=== PATIENT | female | born 1945 | race Caucasian/White ===

== ENCOUNTER 2018-07-21 13:49 | Emergency (ER) | payer MEDICARE ==
[~2018-07-21] VITALS: Ht 167.6 cm; Wt 93.4 kg
[~2018-07-21 13:49] MED LIST: BONIVA; FOLIC ACID; MEDROL; METHOTREXATE; PROTONIX; REMICADE; Z.0.BONIVA150 MG; Z.0.CARAFATE1 GM; Z.0.FOLIC ACID1 MG; Z.1.METHOTREXATE2.5; Z.1.ZEGERID 40 MG1 E; [UNRECOGNIZED DRUG - OTHER]
--- OUTSIDE RECORDS SUMMARY | 2018-07-21 13:54 | XMS REPORT | Continuity of Care Document ---
Author Author [facility] [place] Address Unknown Phone Unavailable Problems Problem Status Onset Date Classification Date Reported Comments Source Osteopenia Active Problem 06/10/2018 Jan Merchant Rheumatoid arthritis of multiple sites without rheumatoid factor Active Problem 06/10/2018 Jan Merchant Idiopathic gout of multiple sites, unspecified chronicity Active Problem 06/10/2018 Jan Merchant Neck pain Active Problem 06/10/2018 Jan Merchant Encounter for long-term use of other high-risk medications Active Problem 06/10/2018 Jan Merchant Vitamin D deficiency Active Problem 06/10/2018 Jan Merchant Other fracture of right great toe, sequela Active Diagnosis 03/18/2017 Jan Merchant Pain of left foot Active Diagnosis 11/19/2016 Jan Merchant Pain in right foot Active Diagnosis 11/19/2016 Jan Merchant Long-term use of other medications - High Risk Active Problem 07/01/2016 Jan Merchant Psoriasis Active Problem 07/01/2016 Jan Merchant Rheumatoid arthritis Active Problem 07/01/2016 Jan Merchant Osteoporosis Active Diagnosis 06/10/2018 Jan Merchant Encounter for immunization Active Diagnosis 05/06/2016 Jan Merchant Medications Medication Details Route Status Patient Instructions Ordering Provider Order Date Source Methotrexate 6 tablets Orally Active 2.5mg Orally Once a week Merchant 03/20/2018 Jan Merchant MethylPREDNISolone 1 tablet Orally Active 4MG Orally Once a day Merchant 03/20/2018 Jan Merchant Folic Acid 2 tablets Orally Active 1 MG Orally q am Merchant 02/09/2018 Jan Merchant Vitamin D (Ergocalciferol) 1 capsule Orally Active 09091 UNIT Orally once a week Merchant 01/20/2018 Jan Merchant Vitamin D (Ergocalciferol) 1 capsule Orally Active 46761 UNIT Orally once a week Merchant 09/22/2017 Jan Merchant Methotrexate 6 tablets Orally Active 2.5mg Orally Once a week Merchant 05/16/2017 Jan Merchant MethylPREDNISolone 1/2 tablet Orally Active 4MG Orally once a day Merchant 05/16/2017 Jan Merchant Hydroxychloroquine Sulfate 1 tablet with food or milk Orally Active 200 MG Orally bid Merchant 12/16/2016 Jan Merchant Hydroxychloroquine Sulfate 1 tablet with food or milk Orally Active 200 MG Orally bid Merchant 12/16/2016 Jan Merchant Prednisone Taper 3 tablets for 5 days, 2 tablets for 5 days and then 1 tablet for 5 days orally Active 5mg orally as directed Bravo 11/17/2016 Jan Merchant MethylPREDNISolone 1/2 tablet Orally Active 4 MG Orally Once a day Bravo 04/22/2016 Jan Merchant Vitamin D (Ergocalciferol) take one capsule by mouth once a week Orally Active 13615 UNIT Orally Qwk Bravo 01/21/2016 Jan Merchant MethylPREDNISolone 1/2 tablet Orally Active 4 MG Orally Once a day Bravo 01/21/2016 Jan Merchant Methotrexate 6 pills Orally Active 2.5mg Orally Once a week Bravo 01/21/2016 Jan Merchant Cyclobenzaprine HCl 1 tablet Orally Active 10 MG Orally BID Bravo 07/25/2015 Jan Merchant Protonix 1 tablet Orally Active 40 MG Orally QD Bravo 08/03/2014 Jan Merchant Methotrexate 6 pills Orally Active 2.5mg Orally Qwk Bravo 08/03/2014 Jan Merchant Motrin IB 1 tablet Orally Active 200 MG Orally prn Bravo 08/03/1998 Jan Merchant Aspirin 1 tablet Orally Active 81 MG Orally QD Bravo 08/03/1994 Jan Merchant Protonix 1 tablet Orally Active 40 MG Orally once a day [place] Jan Merchant Motrin IB 1 tablet Orally Active 200 MG Orally as needed [place] Jan Merchant Aspirin 1 tablet Orally Active 81 MG Orally once a day [place] Jan Merchant Fosamax 1 tablet Orally Active 70 MG Orally once a week [place] Jan Merchant Triamterene-HCTZ 1 tablet in the morning Orally Active 37.5-25 MG Orally Once a day [place] Jan Merchant Protonix 1 tablet Orally Active 40 MG Orally once a day [place] Jan Merchant Aspirin 1 tablet Orally Active 81 MG Orally once a day [place] Jan Merchant Methotrexate 6 tablets Orally Active 2.5mg Orally Once a week [place] Jan Merchant Allopurinol 1 1/2 tablet Orally Active 300 MG Orally Once a day [place] Jan Merchant Fosamax 1 tablet Orally Active 70 MG Orally once a week Merchant Jan Merchant Motrin IB 1 tablet Orally Active 200 MG Orally as needed Merchant Jan Merchant MethylPREDNISolone 1/2 tablet Orally Active 4MG Orally once a day Merchant Jna Merchant MethylPREDNISolone 1 tablet Orally Active 4MG Orally Once a day Shonda Merchant Vitamin D (Ergocalciferol) TAKE ONE CAPSULE BY MOUTH ONCE A WEEK NA Active 21210 UNIT [place] Jan Merchant Methotrexate TAKE 6 TABLETS BY MOUTH ONCE A WEEK NA Active 2.5 MG Merchant Jan Merchant Folic Acid TAKE 1 TABLET BY MOUTH EVERY DAY NA Active 1 MG QD Bravoedilma Merchant Methotrexate 6 tablets Orally Active 2.5mg Orally Once a week Merchant Jan Merchant MethylPREDNISolone 1/2 tablet Orally Active 4 MG Orally Once a day [place] Jan Merchant MethylPREDNISolone TAKE ONE-HALF TABLET BY MOUTH ONCE DAILY NA Active 4MG Shonda Merchant Allergies, Adverse Reactions, Alerts Substance Category Reaction Severity Reaction type Status Date Reported Comments Source Remicade Adverse Reaction Insurance Adverse Reaction Active 02/09/2018 Jan Merchant Percodan Adverse Reaction Info Not Available Adverse Reaction Active 02/09/2018 Jan Merchant Droperidol Adverse Reaction Info Not Available Adverse Reaction Active 02/09/2018 Jan Merchant codeine Adverse Reaction Info Not Available Adverse Reaction Active 02/09/2018 Jan Merchant Immunizations Immunization Date Given Site Status Last Updated Comments Source Flu Vaccine 04/23/2016 completed Jan Merchant Results Order Name Results Value Reference Range Date Interpretation Comments Source Vital Signs Vital Sign Value Date Comments Source Weight 189 02/09/2018 Jan Merchant Height 64 02/09/2018 Jan Merchant Temperature Oral (F) 98.0 F 02/09/2018 Jan Merchant Heart Rate 68 02/09/2018 Jan Merchant Diastolic (mm Hg) 72 02/09/2018 Jan Merchant Systolic (mm Hg) 128 02/09/2018 Jan Alonsoer Weight 188 09/21/2017 Jan Alonsoer Height 64 09/21/2017 Jan Merchant Temperature Oral (F) 98.3 F 09/21/2017 Jan Merchant Heart Rate 70 09/21/2017 Jan Merchant Diastolic (mm Hg) 68 09/21/2017 Jan Merchant Systolic (mm Hg) 150 09/21/2017 Jan Merchant Weight 186 03/16/2017 Jan Merchant Height 64 03/16/2017 Jan Merchant Temperature Oral (F) 98.2 F 03/16/2017 Jan Merchant Heart Rate 84 03/16/2017 Jan Merchant Diastolic (mm Hg) 78 03/16/2017 Jan Merchant Systolic (mm Hg) 110 03/16/2017 Jan Merchant Weight 186 12/16/2016 Jan Merchant Height 64 12/16/2016 Jan Merchant Temperature Oral (F) 98.7 F 12/16/2016 Jan Merchant Heart Rate 60 12/16/2016 Jan Merchant Diastolic (mm Hg) 82 12/16/2016 Jan Merchant Systolic (mm Hg) 130 12/16/2016 Jan Merchant Weight 182 11/17/2016 Jan Merchant Height 64 11/17/2016 Jan Merchant Temperature Oral (F) 98.4 F 11/17/2016 Jan Merchant Heart Rate 88 11/17/2016 Jan Merchant Diastolic (mm Hg) 78 11/17/2016 Jan Merchant Systolic (mm Hg) 132 11/17/2016 Jan Merchant Weight 185 08/19/2016 Jan Merchant Height 64 08/19/2016 Jan Merchant Temperature Oral (F) 97.2 F 08/19/2016 Jan Merchant Heart Rate 74 08/19/2016 Jan Merchant Diastolic (mm Hg) 76 08/19/2016 Jan Merchant Systolic (mm Hg) 128 08/19/2016 Jan Merchant Weight 184 04/23/2016 Jan Merchant Height 64 04/23/2016 Jan Merchant Temperature Oral (F) 98.8 F 04/23/2016 Jan Merchant Heart Rate 76 04/23/2016 Jan Merchant Diastolic (mm Hg) 72 04/23/2016 Jan Merchant Systolic (mm Hg) 124 04/23/2016 Jan Merchant Weight 180 01/23/2016 Jan Merchant Height 64 01/23/2016 Jan Merchant Temperature Oral (F) 98.3 F 01/23/2016 Jan Merchant Heart Rate 72 01/23/2016 Jan Merchant Diastolic (mm Hg) 80 01/23/2016 Jan Merchant Systolic (mm Hg) 130 01/23/2016 Jan Merchant Weight 183 10/25/2015 Jan Merchant Height 64 10/25/2015 Jan Merchant Temperature Oral (F) 98.1 F 10/25/2015 Jan Merchant Heart Rate 64 10/25/2015 Jan Merchant Diastolic (mm Hg) 80 10/25/2015 Jan Alonsoer Systolic (mm Hg) 120 10/25/2015 Jan Merchant Weight 183 07/25/2015 Jan Merchant Height 65 07/25/2015 Jan Merchant Temperature Oral (F) 97.5 F 07/25/2015 Jan Merchant Heart Rate 76 07/25/2015 Jan Merchant Diastolic (mm Hg) 74 07/25/2015 Jan Merchant Encounters Location Location Details Encounter Type Encounter Number Reason For Visit Attending Provider ADM Date DC Date Status Source Gerard Merchant MD f/u [id number] 11/29/2013 11/29/2013 Jan Merchant MD f/u [id number] 11/29/2013 11/29/2013 Jan Merchant MD f/u [id number] 11/29/2013 11/29/2013 Jan Merchant MD f/u [id number] 11/29/2013 11/29/2013 Jan Merchant MD f/u [id number] 11/29/2013 11/29/2013 Jan Merchant MD f/u [id number] 11/29/2013 11/29/2013 Jan Merchant MD f/u [id number] 11/29/2013 11/29/2013 Jan Merchant MD f/u [id number] 2014 2014 Jan Merchant MD f/u [id number] 2014 2014 Jan Mecrhant MD f/u [id number] 2014 2014 Jan Merchant MD f/u [id number] 2014 2014 Jan Merchant MD f/u [id number] 2014 2014 Jan Merchant MD f/u [id number] 2014 2014 Jan Merchant MD f/u [id number] 2014 2014 Jan Merchant MD [facility] [id number] 02/10/2014 02/10/2014 Jan Merchant MD [facility] [id number] 02/10/2014 02/10/2014 Jan Merchant MD [facility] [id number] 02/10/2014 02/10/2014 Jan Merchant MD [facility] [id number] 02/10/2014 02/10/2014 Jan Merchant MD [facility] [id number] 02/10/2014 02/10/2014 Jan Merchant MD [facility] [id number] 02/10/2014 02/10/2014 Jan Merchant MD [facility] [id number] 02/10/2014 02/10/2014 Jan Merchant MD DOUBLE APPOINTMENTS [id number] 03/20/2014 03/20/2014 Jan Merchant MD DOUBLE APPOINTMENTS [id number] 03/20/2014 03/20/2014 Jan Merchant MD DOUBLE APPOINTMENTS [id number] 03/20/2014 03/20/2014 Jan Merchant MD DOUBLE APPOINTMENTS [id number] 03/20/2014 03/20/2014 Jan Merchant MD DOUBLE APPOINTMENTS [id number] 03/20/2014 03/20/2014 Jan Merchant MD DOUBLE APPOINTMENTS [id number] 03/20/2014 03/20/2014 Jan Merchant MD DOUBLE APPOINTMENTS [id number] 03/20/2014 03/20/2014 Jan Merchant MD Unknown [id number] 04/07/2014 04/07/2014 Jan Merchant MD Unknown [id number] 04/07/2014 04/07/2014 Jan Merchant MD Unknown [id number] 04/07/2014 04/07/2014 Jan Merchant MD Unknown [id number] 04/07/2014 04/07/2014 Jan Merchant MD Unknown [id number] 04/07/2014 04/07/2014 Jan Merchant MD Unknown [id number] 04/07/2014 04/07/2014 Jan Merchant MD Unknown [id number] 04/07/2014 04/07/2014 Jan Merchant MD MRI [id number] 05/11/2014 05/11/2014 Jan Merchant MD MRI [id number] 05/11/2014 05/11/2014 Jan Merchant MD MRI [id number] 05/11/2014 05/11/2014 Jan Merchant MD MRI [id number] 05/11/2014 05/11/2014 Jan Merchant MD MRI [id number] 05/11/2014 05/11/2014 Jan Merchant MD MRI [id number] 05/11/2014 05/11/2014 Jan Merchant MD MRI [id number] 05/11/2014 05/11/2014 Jan Merchant MD INSURANCE QUESTIONS [id number] 05/26/2014 05/26/2014 Jan Merchant MD INSURANCE QUESTIONS [id number] 05/26/2014 05/26/2014 Jan Merchant MD INSURANCE QUESTIONS [id number] 05/26/2014 05/26/2014 Jan Merchant MD INSURANCE QUESTIONS [id number] 05/26/2014 05/26/2014 Jan Merchant MD INSURANCE QUESTIONS [id number] 05/26/2014 05/26/2014 Jan Merchant MD INSURANCE QUESTIONS [id number] 05/26/2014 05/26/2014 Jan Merchant MD INSURANCE QUESTIONS [id number] 05/26/2014 05/26/2014 Jan Merchant MD Unknown [id number] 06/12/2014 06/12/2014 Jan Merchant MD Unknown [id number] 06/12/2014 06/12/2014 Jan Merchant MD Unknown [id number] 06/12/2014 06/12/2014 Jan Merchant MD Unknown [id number] 06/12/2014 06/12/2014 Jan Merchant MD Unknown [id number] 06/12/2014 06/12/2014 Jan Merchant MD Unknown [id number] 06/12/2014 06/12/2014 Jan Merchant MD Unknown [id number] 06/12/2014 06/12/2014 Jan Merchant MD Discuss meds [id number] 08/29/2014 08/29/2014 Jan Merchant MD Discuss meds [id number] 08/29/2014 08/29/2014 Jan Merchant MD Discuss meds [id number] 08/29/2014 08/29/2014 Jan Merchant MD Discuss meds [id number] 08/29/2014 08/29/2014 Jan Merchant MD Discuss meds [id number] 08/29/2014 08/29/2014 Jan Merchant MD Discuss meds [id number] 08/29/2014 08/29/2014 Jan Merchant MD Discuss meds [id number] 08/29/2014 08/29/2014 Jan Merchant MD study - 35Bsa91 [id number] 09/04/2014 09/04/2014 Jan Merchant MD study - 05Ngm05 [id number] 09/04/2014 09/04/2014 Jan Merchant MD study - 94Wqk66 [id number] 09/04/2014 09/04/2014 Jan Merchant MD study - 65Hop52 [id number] 09/04/2014 09/04/2014 Jan Merchant MD study - 33Wzz55 [id number] 09/04/2014 09/04/2014 Jan Merchant MD study - 23Ieb74 [id number] 09/04/2014 09/04/2014 Jan Merchant MD study - 33Pib96 [id number] 09/04/2014 09/04/2014 Jan Merchant MD f/u [id number] 10/02/2014 10/02/2014 Jan Merchant MD f/u [id number] 10/02/2014 10/02/2014 Jan Merchant MD / [id number] 10/02/2014 10/02/2014 Jan Merchant MD / [id number] 10/02/2014 10/02/2014 Jan Merchant MD / [id number] 10/02/2014 10/02/2014 Jan Merchant MD / [id number] 10/02/2014 10/02/2014 Jan Merchant MD [facility] [id number] 10/02/2014 10/02/2014 Jan Merchant MD [facility]. [id number] 01/23/2015 01/23/2015 Jan Merchant MD [facility]. [id number] 01/23/2015 01/23/2015 Jan Merchant MD [facility]. [id number] 01/23/2015 01/23/2015 Jan Merchant MD [facility].u [id number] 01/23/2015 01/23/2015 Jan Merchant MD [facility].u [id number] 01/23/2015 01/23/2015 Jan Merchant MD [facility] [id number] 01/23/2015 01/23/2015 Jan Merchant MD [facility] [id number] 01/23/2015 01/23/2015 Jan Merchant MD MRI [id number] 02/08/2015 02/08/2015 Jan Merchant MD MRI [id number] 02/08/2015 02/08/2015 Jan Merchant MD MRI [id number] 02/08/2015 02/08/2015 Jan Merchant MD MRI [id number] 02/08/2015 02/08/2015 Jan Merchant MD MRI [id number] 02/08/2015 02/08/2015 Jan Merchant MD MRI [id number] 02/08/2015 02/08/2015 Jan Merchant MD MRI [id number] 02/08/2015 02/08/2015 Jan Merchant MD 1133 xelheladioz vs humira [id number] 04/25/2015 04/25/2015 Jna Merchant MD 1133 xelheladioz vs humira [id number] 04/25/2015 04/25/2015 Jan Merchant MD 1133 xeljanz vs humira [id number] 04/25/2015 04/25/2015 Jan Merchant MD 1133 xeljanz vs humira [id number] 04/25/2015 04/25/2015 Jan Merchant MD 1133 xeljanz vs humira [id number] 04/25/2015 04/25/2015 Jan Merchant MD 1133 xeljanz vs humira [id number] 04/25/2015 04/25/2015 Jan Merchant MD 1133 xeljanz vs humira [id number] 04/25/2015 04/25/2015 Jan Merchant MD f.u [id number] 04/25/2015 04/25/2015 Jan Merchant MD f.u [id number] 04/25/2015 04/25/2015 Jan Merchant MD f.u [id number] 04/25/2015 04/25/2015 Jan Merchant MD f.u [id number] 04/25/2015 04/25/2015 Jan Merchant MD f.u [id number] 04/25/2015 04/25/2015 Jan Merchant MD [facility] [id number] 04/25/2015 04/25/2015 Jan Merchant MD [facility] [id number] 04/25/2015 04/25/2015 Jan Merchant MD x ray order/mri [id number] 05/24/2015 05/24/2015 Jan Merchant MD x ray order/mri [id number] 05/24/2015 05/24/2015 Jan Merchant MD x ray order/mri [id number] 05/24/2015 05/24/2015 Jan Merchant MD x ray order/mri [id number] 05/24/2015 05/24/2015 Jan Merchant MD x ray order/mri [id number] 05/24/2015 05/24/2015 Jan Merchant MD x ray order/mri [id number] 05/24/2015 05/24/2015 Jan Merchant MD x ray order/mri [id number] 05/24/2015 05/24/2015 Jan Merchant MD [facility] [id number] 07/25/2015 07/25/2015 Jan Merchant MD [facility]u [id number] 07/25/2015 07/25/2015 Jan Merchant MD [facility]u [id number] 07/25/2015 07/25/2015 Jan Merchant MD [facility]u [id number] 07/25/2015 07/25/2015 Jan Merchant MD [facility]u [id number] 07/25/2015 07/25/2015 Jan Merchant MD [facility]u [id number] 07/25/2015 07/25/2015 Jan Merchant MD [facility]u [id number] 07/25/2015 07/25/2015 Jan Merchant MD [facility]u [id number] 10/25/2015 10/25/2015 Jan Merchant MD [facility]u [id number] 10/25/2015 10/25/2015 Jan Merchant MD [facility]u [id number] 10/25/2015 10/25/2015 Jan Merchant MD [facility]u [id number] 10/25/2015 10/25/2015 Jan Merchant MD [facility]u [id number] 10/25/2015 10/25/2015 Jan Merchant MD [facility]u [id number] 10/25/2015 10/25/2015 Jan Merchant MD [facility]u [id number] 01/23/2016 01/23/2016 Jan Merchant MD [facility]u [id number] 01/23/2016 01/23/2016 Jan Merchant MD [facility]u [id number] 01/23/2016 01/23/2016 Jan Merchant MD [facility]u [id number] 01/23/2016 01/23/2016 Jan Merchant MD [facility]u [id number] 01/23/2016 01/23/2016 Jan Merchant MD [facility]u [id number] 04/23/2016 04/23/2016 Jan Merchant MD [facility]u [id number] 04/23/2016 04/23/2016 Jan Merchant MD [facility]u [id number] 04/23/2016 04/23/2016 Jan Merchant MD [facility]u [id number] 04/23/2016 04/23/2016 Jan Merchant MD VERIFY INSURANCE [id number] 06/30/2016 06/30/2016 Jan Merchant MD VERIFY INSURANCE [id number] 06/30/2016 06/30/2016 Jan Merchant MD [employer] [id number] 06/30/2016 06/30/2016 Jan Merchant MD 4 month follow up [id number] 08/19/2016 08/19/2016 Jan Merchant MD lab order [id number] 08/26/2016 08/26/2016 Jan Merchant MD lab order [id number] 08/26/2016 08/26/2016 Jan Merchant Procedures Procedure Code Date Perfomer Comments Source
--- OUTSIDE RECORDS SUMMARY | 2018-07-21 13:55 | XMS REPORT ---
Author Author Sweta Bravo [facility] eClinicalWorks Address Unknown Phone Unavailable Care Team Providers Care Music Educator Name Role Phone Sweta Bravo Unavailable Allergies, Adverse Reactions, Alerts Substance Reaction Event Type Remicade Insurance Drug Allergy Percodan Info Not Available Drug Allergy Droperidol Info Not Available Drug Allergy codeine Info Not Available Non Drug Allergy Encounters Encounter Location Date MRI Gerard Merchant MD May 11, 2014 MRI Bi[facility] - [facility] Gerard Merchant MD February 10, 2014 INSURANCE QUESTIONS Gerard Merchant MD May 26, 2014 Unknown Gerard Merchant MD Jun 12, 2014 f/u Gerard Merchant MD November 29, 2013 f/u Gerard Merchant MD 2014 DOUBLE APPOINTMENTS Gerard Merchant MD Mar 20, 2014 RA study - [id number] Gerard Merchant MD Sep 04, 2014 Discuss meds Gerard Merchant MD Aug 29, 2014 f/bhumi Merchant MD October 02, 2014 3m sally Merchant MD Jul 25, 2015 3m sally Merchant MD October 25, 2015 x ray order/mri Gerard Merchant MD May 24, 2015 Unknown Gerard Merchant MD Apr 07, 2014 1133 xeljanz vs guillerminaira Gerard Merchant MD Apr 25, 2015 3m sally Merchant MD Apr 25, 2015 3m sally Merchant MD January 23, 2015 MRI Gerard Merchant MD February 08, 2015 Problems Problem Type Condition ICD-9 Code Onset Dates Condition Status Assessment Encounter for long-term (current) use of other high-risk medications Z79.899 Active Problem Encounter for long-term (current) use of other high-risk medications Z79.899 Active Problem Neck pain M54.2 Active Problem Rheumatoid arthritis of multiple sites without rheumatoid factor M06.09 Active Problem Long-term (current) use of other medications - High Risk V58.69 Active Assessment Rheumatoid arthritis of multiple sites without rheumatoid factor M06.09 Active Problem Psoriasis 696.1 Active Problem Rheumatoid arthritis 714.0 Active Medications Medication Code System Code Instructions Start Date End Date Status Dosage Motrin IB [facility] [address]-11 200 MG Orally prn Aug 03, 1998 Active 1 tablet Aspirin [facility] [address]-12 81 MG Orally QD Aug 03, 1994 Active 1 tablet Folic Acid [facility] 92697623182 1 MG QD Active TAKE 1 TABLET BY MOUTH EVERY DAY Protonix [facility] [address]-79 40 MG Orally QD Aug 03, 2014 Active 1 tablet MethylPREDNISolone [facility] [address]-98 4 MG Orally Once a day Apr 22, 2016 Active 1/2 tablet Methotrexate Unknown 0 2.5mg Orally Qwk Aug 03, 2014 January 21, 2016 Active 6 pills Vitamin D (Ergocalciferol) [facility] [address]-64 29044 UNIT Orally Qwk January 21, 2016 Active take one capsule by mouth once a week Social History Social History Element Qualifiers Date Reported Illicit Drugs . none October 25, 2015 Diet: no. October 25, 2015 Tobacco Use: . Are you a:: never smoker October 25, 2015 Marital Status: . October 25, 2015 Caffeine: yes. 1-2 October 25, 2015 Exercise: no. October 25, 2015 Alcohol: no. 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 RWANDAN(-> OR=60 mL/min/1.73m2) 65 ALKALINE PHOSPHATASE(-33-130 U/L) 38 eGFR (-> OR=60 mL/min/1.73m2) 75 BILIRUBIN, TOTAL(-0.2-1.2 mg/dL) 0.3 BUN/CREATININE RATIO(-6-22 (calc)) NOT APPLICABLE ALBUMIN/GLOBULIN RATIO(-1.0-2.5 (calc)) 1.8 SODIUM(-135-146 mmol/L) 137 GLOBULIN(-1.9-3.7 g/dL (calc)) 2.4 POTASSIUM(-3.5-5.3 mmol/L) 3.8 GLUCOSE(-65-99 mg/dL) 106 CHLORIDE(-98-110 mmol/L) 99 ALBUMIN(-3.6-5.1 g/dL) 4.2 UREA NITROGEN (BUN)(-7-25 mg/dL) 16 PROTEIN, TOTAL(-6.1-8.1 g/dL) 6.6 SED RATE BY MODIFIED WESTERGREN SED RATE BY MODIFIED WESTERGREN(-< OR=30 mm/h) 11 C-REACTIVE PROTEIN C-REACTIVE PROTEIN(-<0.80 mg/dL) 0.24 CBC (INCLUDES DIFF/PLT) MCHC(-32.0-36.0 g/dL) 33.0 MCH(-27.0-33.0 pg) 30.1 PLATELET COUNT(-140-400 Thousand/uL) 245 RDW(-11.0-15.0 %) 16.3 BASOPHILS(- %) 0.2 ABSOLUTE NEUTROPHILS(-2548-7748 cells/uL) 6665 ABSOLUTE LYMPHOCYTES(-850-3900 cells/uL) 2030 MPV(-7.5-11.5 fL) 9.3 ABSOLUTE BASOPHILS(-0-200 cells/uL) 19 HEMATOCRIT(-35.0-45.0 %) 39.2 NEUTROPHILS(- %) 70.9 MCV(-80.0-100.0 fL) 91.1 RED BLOOD CELL COUNT(-3.80-5.10 Million/uL) 4.30 ABSOLUTE MONOCYTES(-200-950 cells/uL) 555 ABSOLUTE EOSINOPHILS(-15-500 cells/uL) 132 HEMOGLOBIN(-11.7-15.5 g/dL) 12.9 EOSINOPHILS(- %) 1.4 WHITE BLOOD CELL COUNT(-3.8-10.8 Thousand/uL) 9.4 LYMPHOCYTES(- %) 21.6 MONOCYTES(- %) 5.9 Summary Purpose eClinicalWorks Submission
--- OUTSIDE RECORDS SUMMARY | 2018-07-21 13:55 | XMS REPORT ---
Author Gerard Coe eClinicalWorks Address Unknown Phone Unavailable Care Team Providers Care Electronic Drafter Name Role Phone Gerard Merchant CP Unavailable Encounters Encounter Location Date MRI Gerard Merchant MD May 11, 2014 MRI [facility] - [facility] Gerard Merchant MD February 10, 2014 INSURANCE QUESTIONS Gerard Merchant MD May 26, 2014 Unknown Gerard Merchant MD Jun 12, 2014 f/u Gerard Merchant MD November 29, 2013 f/u Gerard Merchant MD 2014 DOUBLE APPOINTMENTS Gerard Merchant MD Mar 20, 2014 RA study - [id number] Gerard Merchant MD Sep 04, 2014 VERIFY INSURANCE Gerard Merchant MD Jun 30, 2016 3m sally Merchant MD Apr 23, 2016 Discuss meds Gerard Merchant MD Aug 29, 2014 f/u Gerard Merchant MD October 02, 2014 chris Merchant MD Jul 25, 2015 3m sally Merchant MD October 25, 2015 x ray order/mri Gerard Merchant MD May 24, 2015 Unknown Gerard Merchant MD Apr 07, 2014 1133 xeljanz vs guillerminaira Gerard Merchant MD Apr 25, 2015 chris Merchant MD Apr 25, 2015 3m sally Merchant MD January 23, 2015 MRI Gerard Merchant MD February 08, 2015 chris Merchant MD January 23, 2016 Problems Problem Type Condition ICD-9 Code Onset Dates Condition Status Problem Encounter for long-term (current) use of other high-risk medications Z79.899 Active Problem Neck pain M54.2 Active Problem Rheumatoid arthritis of multiple sites without rheumatoid factor M06.09 Active Problem Long-term (current) use of other medications - High Risk V58.69 Active Problem Psoriasis 696.1 Active Problem Rheumatoid arthritis 714.0 Active Social History Social History Element Qualifiers Date Reported Illicit Drugs . none Apr 23, 2016 Diet: no. Apr 23, 2016 Tobacco Use: . Are you a:: never smoker Apr 23, 2016 Marital Status: . Apr 23, 2016 Caffeine: yes. 1-2 Apr 23, 2016 Exercise: no. Apr 23, 2016 Alcohol: no. 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
--- OUTSIDE RECORDS SUMMARY | 2018-07-21 13:55 | XMS REPORT ---
Author Gerard Coe [facility] eClinicalWorks Address Unknown Phone Unavailable Care Team Providers Care Beading Machine Operator Name Role Phone Gerard Merchant CP Unavailable Allergies, Adverse Reactions, Alerts Substance Reaction Event Type Remicade Insurance Drug Allergy Percodan Info Not Available Drug Allergy Droperidol Info Not Available Drug Allergy codeine Info Not Available Non Drug Allergy Problems Problem Type Condition Code Onset Dates Condition Status Assessment Encounter for long-term (current) use of other high-risk medications Z79.899 Active Assessment Osteopenia M85.80 Active Assessment Idiopathic gout of multiple sites, unspecified chronicity M10.09 Active Assessment Vitamin D deficiency E55.9 Active Problem Idiopathic gout of multiple sites, unspecified chronicity M10.09 Active Problem Osteopenia M85.80 Active Problem Vitamin D deficiency E55.9 Active Problem Encounter for long-term (current) use of other high-risk medications Z79.899 Active Assessment Rheumatoid arthritis of multiple sites without rheumatoid factor M06.09 Active Problem Rheumatoid arthritis of multiple sites without rheumatoid factor M06.09 Active Problem Neck pain M54.2 Active Medications Medication Code System Code Instructions Start Date End Date Status Dosage Protonix [facility] 72785795729 40 MG Orally once a day Active 1 tablet Aspirin ND 03209702402 81 MG Orally once a day Active 1 tablet Triamterene-HCTZ [facility] 60667437718 37.5-25 MG Orally Once a day Active 1 tablet in the morning Vitamin D (Ergocalciferol) ND 09248966251 40877 UNIT Orally once a week January 20, 2018 Active 1 capsule Motrin IB [facility] 23346982784 200 MG Orally as needed Active 1 tablet MethylPREDNISolone ND 67879796789 4MG Orally Once a day Active 1 tablet Fosamax ND 73794786115 70 MG Orally once a week Active 1 tablet Methotrexate NDC 0 2.5mg Orally Once a week Active 6 tablets Folic Acid ND 86214638180 1 MG Orally q am February 09, 2018 Aug 08, 2018 Active 2 tablets Vital Signs Date/Time: February 09, 2018 BMI 32.44 Index Weight 189 lbs Height 64 in Temperature 98.0 F Cardiac Monitoring Heart Rate 68 /min Blood Pressure Diastolic 72 mm Hg Blood Pressure Systolic 128 mm Hg Results No Known Results Summary Purpose eClinicalWorks Submission
--- OUTSIDE RECORDS SUMMARY | 2018-07-21 13:55 | XMS REPORT ---
Author Gerard Coe Organization eClinicalWorks Address Unknown Phone Unavailable Care Team Providers Care Applications Support Lead Name Role Phone Gerard Merchant CP Unavailable Allergies No Known Allergies Problems Problem Type Condition Code Onset Dates Condition Status Problem Idiopathic gout of multiple sites, unspecified chronicity M10.09 Active Problem Osteopenia M85.80 Active Problem Vitamin D deficiency E55.9 Active Problem Encounter for long-term (current) use of other high-risk medications Z79.899 Active Problem Rheumatoid arthritis of multiple sites without rheumatoid factor M06.09 Active Problem Neck pain M54.2 Active Medications No Known Medications Results No Known Results Summary Purpose eClinicalWorks Submission
--- OUTSIDE RECORDS SUMMARY | 2018-07-21 13:55 | XMS REPORT ---
Author Gerard Coe [facility] eClinicalWorks Address Unknown Phone Unavailable Care Team Providers Care Rollway Man Name Role Phone Gerard Merchant CP Unavailable Allergies, Adverse Reactions, Alerts Substance Reaction Event Type Remicade Insurance Drug Allergy Percodan Info Not Available Drug Allergy Droperidol Info Not Available Drug Allergy codeine Info Not Available Non Drug Allergy Problems Problem Type Condition Code Onset Dates Condition Status Assessment Idiopathic gout of multiple sites, unspecified chronicity M10.09 Active Assessment Encounter for long-term (current) use of other high-risk medications Z79.899 Active Problem Osteopenia M85.80 Active Problem Rheumatoid arthritis of multiple sites without rheumatoid factor M06.09 Active Problem Idiopathic gout of multiple sites, unspecified chronicity M10.09 Active Assessment Rheumatoid arthritis of multiple sites without rheumatoid factor M06.09 Active Assessment Osteopenia M85.80 Active Problem Encounter for long-term (current) use of other high-risk medications Z79.899 Active Problem Neck pain M54.2 Active Medications Medication Code System Code Instructions Start Date End Date Status Dosage Methotrexate NDC 0 2.5mg Orally Once a week May 16, 2017 Active [address] [facility] [address]-38 40 MG Orally once a day Active 1 tablet Hydroxychloroquine Sulfate [facility] [address]-35 200 MG Orally bid December 16, 2016 Jun 14, 2017 Active 1 tablet with food or milk Aspirin [facility] [address]-28 81 MG Orally once a day Active [address] [facility] [address]-42 300 MG Orally Once a day Active 1 [address] [facility] [address]-85 4MG Orally once a day May 16, 2017 Active 1/[address] [facility] [address]-67 70 MG Orally once a week Active 1 tablet Motrin IB [facility] [address]-47 200 MG Orally as needed Active 1 tablet Vital Signs Date/Time: December 16, 2016 BMI 31.92 Index Weight 186 lbs Height 64 in Temperature 98.7 F Cardiac Monitoring Heart Rate 60 /min Blood Pressure Diastolic 82 mm Hg Blood Pressure Systolic 130 mm Hg Results No Known Results Summary Purpose eClinicalWorks Submission
--- OUTSIDE RECORDS SUMMARY | 2018-07-21 13:55 | XMS REPORT ---
Author Gerard Coe Organization eClinicalWorks Address Unknown Phone Unavailable Care Team Providers Care Cartridge Assembler Name Role Phone Gerard Merchant CP Unavailable Allergies No Known Allergies Problems Problem Type Condition Code Onset Dates Condition Status Problem Rheumatoid arthritis of multiple sites without rheumatoid factor M06.09 Active Problem Encounter for long-term (current) use of other high-risk medications Z79.899 Active Problem Osteopenia M85.80 Active Problem Neck pain M54.2 Active Medications No Known Medications Results No Known Results Summary Purpose eClinicalWorks Submission
--- OUTSIDE RECORDS SUMMARY | 2018-07-21 13:55 | XMS REPORT ---
Author Gerard Coe Organization eClinicalWorks Address Unknown Phone Unavailable Care Team Providers Care Motor Carrier Inspector Name Role Phone Gerard Merchant CP Unavailable [...]
--- OUTSIDE RECORDS SUMMARY | 2018-07-21 13:55 | XMS REPORT ---
Author Gerard Coe [facility] eClinicalWorks Address Unknown Phone Unavailable Care Team Providers Care Manufacturer'S Service Representative Name Role Phone Gerard Merchant CP Unavailable Allergies, Adverse Reactions, Alerts Substance Reaction Event Type Remicade Insurance Drug Allergy Percodan Info Not Available Drug Allergy Droperidol Info Not Available Drug Allergy codeine Info Not Available Non Drug Allergy Problems Problem Type Condition Code Onset Dates Condition Status Assessment Idiopathic gout of multiple sites, unspecified chronicity M10.09 Active Assessment Neck pain M54.2 Active Assessment Osteopenia M85.80 Active Problem Osteopenia M85.80 Active Problem Rheumatoid arthritis of multiple sites without rheumatoid factor M06.09 Active Problem Idiopathic gout of multiple sites, unspecified chronicity M10.09 Active Assessment Rheumatoid arthritis of multiple sites without rheumatoid factor M06.09 Active Assessment Encounter for long-term (current) use of other high-risk medications Z79.899 Active Problem Encounter for long-term (current) use of other high-risk medications Z79.899 Active Problem Neck pain M54.2 Active Medications Medication Code System Code Instructions Start Date End Date Status Dosage Protonix [facility] [place] [address]-54 40 MG Orally once a day Active 1 tablet Aspirin [facility] [place] [address]-36 81 MG Orally once a day Active 1 tablet Hydroxychloroquine Sulfate [facility] [address]-89 200 MG Orally bid December 16, 2016 Active 1 tablet with food or milk Methotrexate ND 0 2.5mg Orally Once a week Active 6 tablets Allopurinol [facility] [address]-35 300 MG Orally Once a day Active 1 1/2 tablet Fosamax [facility] [address]-01 70 MG Orally once a week Active 1 tablet Motrin IB [facility] [address]-10 200 MG Orally as needed Active 1 tablet MethylPREDNISolone [facility] [place] [address]-67 4MG Orally once a day Active 1/2 tablet Vital Signs Date/Time: Mar 16, 2017 BMI 31.92 Index Weight 186 lbs Height 64 in Temperature 98.2 F Cardiac Monitoring Heart Rate 84 /min Blood Pressure Diastolic 78 mm Hg Blood Pressure Systolic 110 mm Hg Results No Known Results Summary Purpose eClinicalWorks Submission
--- OUTSIDE RECORDS SUMMARY | 2018-07-21 13:55 | XMS REPORT ---
Author Gerard Coe [facility] eClinicalWorks Address Unknown Phone Unavailable Care Team Providers Care Leach Runner Name Role Phone Gerard Merchant CP Unavailable [...] Start Date End Date Status Dosage Protonix ND 41445258537 40 MG Orally once a day Active 1 tablet Motrin IB ND 35312289980 200 MG Orally as needed Active 1 tablet Hydroxychloroquine Sulfate ND 68970466190 200 MG Orally bid December 16, 2016 Active 1 tablet with food or milk Methotrexate NDC 0 2.5mg Orally Once a week Mar 20, 2018 Active 6 tablets MethylPREDNISolone ND 53653146220 4MG Orally Once a day Mar 20, 2018 Active 1 tablet Aspirin ND 78601978232 81 MG Orally once a day Active 1 tablet Fosamax ND 00416073657 70 MG Orally once a week Active 1 tablet Triamterene-HCTZ ND 88394836594 37.5-25 MG Orally Once a day Active 1 tablet in the morning Vital Signs Date/Time: Sep 21, 2017 BMI 32.27 Index Weight 188 lbs Height 64 in Temperature 98.3 F Cardiac Monitoring Heart Rate 70 /min Blood Pressure Diastolic 68 mm Hg Blood Pressure Systolic 150 mm Hg Results Name Result Date Reference Range Unit Abnormality Flag COMPREHENSIVE METABOLIC PANEL W/EGFR ----CALCIUM 9.9 20170921 8.6-10.4 mg/dL N ----CARBON DIOXIDE 31 20170921 20-31 mmol/L N ----ALT 26 20170921 6-29 U/L N ----CREATININE 0.95 47475621 0.60-0.93 mg/dL H ----AST 23 20170921 10-35 U/L N ----eGFR NON-AFR. TOGOLESE 60 20170921 > OR=60 mL/min/1.73m2 N ----ALKALINE PHOSPHATASE 46 20170921 33-130 U/L N ----eGFR 69 20170921 > OR=60 mL/min/1.73m2 N ----BILIRUBIN, TOTAL 0.4 20170921 0.2-1.2 mg/dL N ----BUN/CREATININE RATIO 19 20170921 6-22 (calc) N ----ALBUMIN/GLOBULIN RATIO 1.8 20170921 1.0-2.5 (calc) N ----SODIUM 140 20170921 135-146 mmol/L N ----GLOBULIN 2.3 20170921 1.9-3.7 g/dL (calc) N ----POTASSIUM 4.0 20170921 3.5-5.3 mmol/L N ----GLUCOSE 136 20170921 65-99 mg/dL H ----CHLORIDE 103 20170921 98-110 mmol/L N ----ALBUMIN 4.2 63441339 3.6-5.1 g/dL N ----UREA NITROGEN (BUN) 18 20170921 7-25 mg/dL N ----PROTEIN, TOTAL 6.5 41933332 6.1-8.1 g/dL N SED RATE BY MODIFIED WESTERGREN ----SED RATE BY MODIFIED WESTERGREN 2 22550030 < OR=30 mm/h N C-REACTIVE PROTEIN ----C-REACTIVE PROTEIN 0.3 20170921 <8.0 mg/L N CBC (INCLUDES DIFF/PLT) ----MCHC 32.5 53817301 32.0-36.0 g/dL N ----MCH 30.0 31361542 27.0-33.0 pg N ----PLATELET COUNT 260 74073410 140-400 Thousand/uL N ----RDW 15.3 20186367 11.0-15.0 % H ----BASOPHILS 0.3 99403249 % N ----ABSOLUTE NEUTROPHILS 6782 39977253 4032-2680 cells/uL N ----ABSOLUTE LYMPHOCYTES 1629 51014015 850-3900 cells/uL N ----MPV 10.9 95585647 7.5-12.5 fL N ----ABSOLUTE BASOPHILS 27 21563427 0-200 cells/uL N ----HEMATOCRIT 41.9 77919351 35.0-45.0 % N ----NEUTROPHILS 76.2 41269404 % N ----MCV 92.5 21597974 80.0-100.0 fL N ----RED BLOOD CELL COUNT 4.53 50504080 3.80-5.10 Million/uL N ----ABSOLUTE MONOCYTES 383 75476887 200-950 cells/uL N ----ABSOLUTE EOSINOPHILS 80 42482302 15-500 cells/uL N ----HEMOGLOBIN 13.6 95193282 11.7-15.5 g/dL N ----EOSINOPHILS 0.9 99180551 % N ----WHITE BLOOD CELL COUNT 8.9 79661598 3.8-10.8 Thousand/uL N ----LYMPHOCYTES 18.3 41286606 % N ----MONOCYTES 4.3 69188292 % N VITAMIN D, 25-HYDROXY, LC/MS/MS ----VITAMIN D, 25-OH, TOTAL 14 51637749 30-100 ng/mL L Summary Purpose eClinicalWorks Submission
--- OUTSIDE RECORDS SUMMARY | 2018-07-21 13:55 | XMS REPORT ---
Author Gerard Coe Organization eClinicalWorks Address Unknown Phone Unavailable Care Team Providers Care Motor Rebuilder Name Role Phone Gerard Merchant CP Unavailable [...] Instructions Start Date End Date Status Dosage Vitamin D (Ergocalciferol) [facility] [id number] 05292 UNIT Orally once a week January 20, 2018 Active 1 capsule Results No Known Results Summary Purpose eClinicalWorks Submission
--- OUTSIDE RECORDS SUMMARY | 2018-07-21 13:55 | XMS REPORT ---
Author Gerard Coe Organization eClinicalWorks Address Unknown Phone Unavailable Care Team Providers Care Community Relations Rep Name Role Phone Gerard Merchant CP Unavailable Allergies No Known Allergies Problems Problem Type Condition Code Onset Dates Condition Status Assessment Osteoporosis M81.0 Active Problem Idiopathic gout of multiple sites, [...] End Date Status Dosage Vitamin D (Ergocalciferol) [facility] [place] [id number] 60191 UNIT Active TAKE ONE CAPSULE BY MOUTH ONCE A WEEK MethylPREDNISolone [facility] [place] 62611868395 4MG Orally Once a day Active 1 tablet Methotrexate [facility] [place] 88719617647 2.5 MG Active TAKE 6 TABLETS BY MOUTH ONCE A WEEK Folic Acid [facility] [place] 11490263886 1 MG Orally q am February 09, 2018 Aug 08, 2018 Active 2 tablets Aspirin [facility] [place] 66771589763 81 MG Orally once a day Active 1 tablet Motrin IB [facility] [place] 71365851955 200 MG Orally as needed Active 1 tablet Triamterene-HCTZ [facility] [place] 68253127057 37.5-25 MG Orally Once a day Active 1 tablet in the morning Fosamax [facility] [place] 47172101915 70 MG Orally once a week Active 1 tablet Methotrexate NDC 0 2.5mg Orally Once a week Active 6 tablets Protonix ND 68929090426 40 MG Orally once a day Active 1 tablet Results No Known Results Summary Purpose eClinicalWorks Submission
--- OUTSIDE RECORDS SUMMARY | 2018-07-21 13:55 | XMS REPORT ---
Author Author Gerard Merchant eClinicalWorks Address Unknown Phone Unavailable Care Team Providers Care Pitching Coach Name Role Phone Gerard Merchant CP Unavailable [...] APPOINTMENTS Gerard Merchant MD Mar 20, 2014 study - [id number] Gerard Merchant MD Sep 04, 2014 VERIFY [...] Unknown Gerard Merchant MD Apr 07, 2014 lab order Gerard Merchant MD Aug 26, 2016 1133 xeljanz vs humira Gerard Merchant MD Apr 25, 2015 4 month follow up Gerard Merchant MD Aug 19, 2016 chris Merchant MD Apr 25, 2015 3m sally Merchant MD January 23, 2015 MRI Gerard Merchant MD February 08, 2015 chris Merchant MD January 23, 2016 Problems Problem Type Condition ICD-9 Code Onset Dates Condition Status Problem Rheumatoid arthritis of multiple sites without rheumatoid factor M06.09 Active Problem Encounter for long-term (current) use of other high-risk medications Z79.899 Active Problem Osteopenia M85.80 Active Assessment Encounter for long-term (current) use of other high-risk medications Z79.899 Active Assessment Osteopenia M85.80 Active Problem Neck pain M54.2 Active Assessment Rheumatoid arthritis of multiple sites without rheumatoid factor M06.09 Active Medications Medication Code System Code Instructions Start Date End Date Status Dosage Protonix [facility] [address]-36 40 MG Orally QD Active 1 tablet Motrin IB [facility] [address]-52 200 MG Orally prn Active 1 tablet Fosamax [facility] [address]-03 70 MG Orally once a week Active 1 tablet Methotrexate Unknown 0 2.5mg Orally Once a week Active 6 tablets [facility] [address]-46 81 MG Orally QD Active 1 tablet [facility]EDNISolone [facility] [address]-24 4MG Active TAKE ONE-HALF TABLET BY MOUTH ONCE DAILY Social History Social History Element Qualifiers Date Reported Illicit Drugs . none Aug 19, 2016 Diet: no. Aug 19, 2016 Tobacco Use: . Are you a:: never smoker Aug 19, 2016 Marital Status: . Aug 19, 2016 Caffeine: yes. 1-2 Aug 19, 2016 Exercise: no. Aug 19, 2016 Alcohol: no. 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 [place](-> OR=60 mL/min/1.73m2) 46 ALKALINE PHOSPHATASE(-33-130 U/L) 40 eGFR (-> OR=60 mL/min/1.73m2) 54 BILIRUBIN, TOTAL(-0.2-1.2 mg/dL) 0.4 BUN/CREATININE RATIO(-6-22 (calc)) 16 ALBUMIN/GLOBULIN RATIO(-1.0-2.5 (calc)) 1.7 SODIUM(-135-146 mmol/L) 140 GLOBULIN(-1.9-3.7 g/dL (calc)) 2.5 POTASSIUM(-3.5-5.3 mmol/L) 4.3 GLUCOSE(-65-99 mg/dL) 98 CHLORIDE(-98-110 mmol/L) 104 ALBUMIN(-3.6-5.1 g/dL) 4.3 UREA NITROGEN (BUN)(-7-25 mg/dL) 19 PROTEIN, TOTAL(-6.1-8.1 g/dL) 6.8 SED RATE BY MODIFIED WESTERGREN SED RATE BY MODIFIED WESTERGREN(-< OR=30 mm/h) 6 C-REACTIVE PROTEIN C-REACTIVE PROTEIN(-<0.80 mg/dL) <0.10 CBC (INCLUDES DIFF/PLT) MCHC(-32.0-36.0 g/dL) 31.7 MCH(-27.0-33.0 pg) 29.5 PLATELET COUNT(-140-400 Thousand/uL) 257 RDW(-11.0-15.0 %) 17.5 BASOPHILS(- %) 0.3 ABSOLUTE NEUTROPHILS(-3399-8012 cells/uL) 7455 ABSOLUTE LYMPHOCYTES(-850-3900 cells/uL) 1911 MPV(-7.5-11.5 fL) 8.7 ABSOLUTE BASOPHILS(-0-200 cells/uL) 32 HEMATOCRIT(-35.0-45.0 %) 40.6 NEUTROPHILS(- %) 71.0 MCV(-80.0-100.0 fL) 93.0 RED BLOOD CELL COUNT(-3.80-5.10 Million/uL) 4.36 ABSOLUTE MONOCYTES(-200-950 cells/uL) 987 ABSOLUTE EOSINOPHILS(-15-500 cells/uL) 116 HEMOGLOBIN(-11.7-15.5 g/dL) 12.9 EOSINOPHILS(- %) 1.1 WHITE BLOOD CELL COUNT(-3.8-10.8 Thousand/uL) 10.5 LYMPHOCYTES(- %) 18.2 MONOCYTES(- %) 9.4 Summary Purpose eClinicalWorks Submission
--- OUTSIDE RECORDS SUMMARY | 2018-07-21 13:55 | XMS REPORT ---
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
--- OUTSIDE RECORDS SUMMARY | 2018-07-21 13:55 | XMS REPORT ---
Author Author Sweta Bravo [facility] eClinicalWorks Address Unknown Phone Unavailable Care Team Providers Care Polymerization Engineer Name Role Phone Sweta Bravo CP Unavailable Allergies, Adverse Reactions, Alerts Substance [...] f/u Gerard Merchant MD November 29, 2013 f/bhumi Merchant MD 2014 DOUBLE APPOINTMENTS Gerard Merchant MD Mar 20, 2014 RA study - [id number] Gerard Merchant MD Sep 04, 2014 Discuss [...] 2015 chris Merchant MD Apr 25, 2015 chris Merchant MD January 23, 2015 KATELYN Merchant MD February 08, 2015 chris Merchant [...] Start Date End Date Status Dosage Methotrexate Unknown 0 2.5mg Orally Once a week Active 6 tablets MethylPREDNISolone [facility] [address]-63 4 MG Orally Once a day Active 1/2 tablet Motrin IB [facility] [address]-35 200 MG Orally prn Active 1 tablet Aspirin [facility] [address]-42 81 MG Orally QD Active 1 tablet Folic Acid [facility] 30822895217 1 MG QD Active TAKE 1 TABLET BY MOUTH EVERY DAY Protonix [facility] [address]-39 40 MG Orally QD Active 1 tablet Social History Social History Element Qualifiers Date Reported Illicit Drugs . none January 23, 2016 Diet: no. January 23, 2016 Tobacco Use: . Are you a:: never smoker January 23, 2016 Marital Status: . January 23, 2016 Caffeine: yes. 1-2 January 23, 2016 Exercise: no. January 23, 2016 Alcohol: no. 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 [place](-> OR=60 mL/min/1.73m2) 69 ALKALINE PHOSPHATASE(-33-130 U/L) 41 eGFR (-> OR=60 mL/min/1.73m2) 80 BILIRUBIN, TOTAL(-0.2-1.2 mg/dL) 0.4 BUN/CREATININE RATIO(-6-22 (calc)) NOT APPLICABLE ALBUMIN/GLOBULIN RATIO(-1.0-2.5 (calc)) 1.6 SODIUM(-135-146 mmol/L) 142 GLOBULIN(-1.9-3.7 g/dL (calc)) 2.6 POTASSIUM(-3.5-5.3 mmol/L) 4.3 GLUCOSE(-65-99 mg/dL) 119 CHLORIDE(-98-110 mmol/L) 104 ALBUMIN(-3.6-5.1 g/dL) 4.2 UREA NITROGEN (BUN)(-7-25 mg/dL) 17 PROTEIN, TOTAL(-6.1-8.1 g/dL) 6.8 SED RATE BY MODIFIED WESTERGREN SED RATE BY MODIFIED WESTERGREN(-< OR=30 mm/h) 6 C-REACTIVE PROTEIN C-REACTIVE PROTEIN(-<0.80 mg/dL) 0.15 CBC (INCLUDES DIFF/PLT) MCHC(-32.0-36.0 g/dL) 32.8 MCH(-27.0-33.0 pg) 30.9 PLATELET COUNT(-140-400 Thousand/uL) 230 RDW(-11.0-15.0 %) 16.0 BASOPHILS(- %) 0.3 ABSOLUTE NEUTROPHILS(-0492-3298 cells/uL) 6856 ABSOLUTE LYMPHOCYTES(-850-3900 cells/uL) 1436 MPV(-7.5-11.5 fL) 9.1 ABSOLUTE BASOPHILS(-0-200 cells/uL) 26 HEMATOCRIT(-35.0-45.0 %) 42.6 NEUTROPHILS(- %) 78.8 MCV(-80.0-100.0 fL) 94.2 RED BLOOD CELL COUNT(-3.80-5.10 Million/uL) 4.52 ABSOLUTE MONOCYTES(-200-950 cells/uL) 235 ABSOLUTE EOSINOPHILS(-15-500 cells/uL) 148 HEMOGLOBIN(-11.7-15.5 g/dL) 13.9 EOSINOPHILS(- %) 1.7 WHITE BLOOD CELL COUNT(-3.8-10.8 Thousand/uL) 8.7 LYMPHOCYTES(- %) 16.5 MONOCYTES(- %) 2.7 Summary Purpose eClinicalWorks Submission
--- OUTSIDE RECORDS SUMMARY | 2018-07-21 13:55 | XMS REPORT ---
Author Author Gerard Merchant eClinicalWorks Address Unknown Phone Unavailable Care Team Providers Care Word Processing Operator Name Role Phone Gerard Merchant CP [...] MD Mar 20, 2014 RA study - [id number] Gerard Merchant MD Sep 04, 2014 VERIFY INSURANCE Gerard Merchant MD Jun 30, 2016 3m saleem.bhumi Merchant MD Apr 23, 2016 Discuss meds [...] humira Gerard Merchant MD Apr 25, 2015 3m [...] Z79.899 Active Problem Neck pain M54.2 Active Assessment Rheumatoid arthritis of multiple sites without rheumatoid factor M06.09 Active Social History Social History Element Qualifiers Date Reported Illicit Drugs . none Aug 19, 2016 Diet: no. Aug 19, 2016 Tobacco Use: . Are you a:: never smoker Aug 19, 2016 Marital Status: . Aug 19, 2016 Caffeine: yes. 1-2 Aug 19, 2016 Exercise: no. Aug 19, 2016 Alcohol: no. 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
--- OUTSIDE RECORDS SUMMARY | 2018-07-21 13:55 | XMS REPORT ---
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
--- OUTSIDE RECORDS SUMMARY | 2018-07-21 13:55 | XMS REPORT ---
Author Author Sweta Bravo [facility] eClinicalWorks Address Unknown Phone Unavailable Care Team Providers Care Accountant Manager Name Role Phone Sweta Bravo Unavailable Allergies, Adverse Reactions, Alerts Substance Reaction Event Type Remicade Insurance Drug Allergy Percodan Info Not Available Drug Allergy Droperidol Info Not Available Drug Allergy codeine Info Not Available Non Drug Allergy Problems Problem Type Condition Code Onset Dates Condition Status Assessment Pain of left foot M79.672 Active Assessment Pain in right foot M79.671 Active Problem Rheumatoid arthritis of multiple sites [...] Date End Date Status Dosage Motrin IB [facility] [address]-44 200 MG Orally as needed Active 1 tablet Fosamax [facility] [address]-09 70 MG Orally once a week Active 1 tablet MethylPREDNISolone [facility] [address]-06 4MG Orally once a day May 16, 2017 Active 1/2 tablet Methotrexate ND 0 2.5mg Orally Once a week May 16, 2017 Active 6 tablets Protonix [facility] [address]-08 40 MG Orally once a day Active 1 tablet Aspirin [facility] [address]-59 81 MG Orally once a day Active 1 tablet Prednisone Taper [facility] 2726-5443-33 5mg orally as directed November 17, 2016 December 02, 2016 Active 3 tablets for 5 days, 2 tablets for 5 days and then 1 tablet for 5 days Allopurinol [facility] [address]-42 300 MG Orally Once a day Active 1 tablet Vital Signs Date/Time: November 17, 2016 BMI 31.24 Index Weight 182 lbs Height 64 in Temperature 98.4 F Cardiac Monitoring Heart Rate 88 /min Blood Pressure Diastolic 78 mm Hg Blood Pressure Systolic 132 mm Hg Results No Known Results Summary Purpose eClinicalWorks Submission
--- OUTSIDE RECORDS SUMMARY | 2018-07-21 13:55 | XMS REPORT ---
Author Gerard Coe Organization eClinicalWorks Address Unknown Phone Unavailable Care Team Providers Care Construction Safety Manager Name Role Phone Geradr Merchant CP Unavailable Allergies No Known Allergies [...] End Date Status Dosage Vitamin D (Ergocalciferol) [facility] [id number] 40421 UNIT Orally once a week Sep 22, 2017 Active 1 capsule Results No Known Results Summary Purpose eClinicalWorks Submission
--- OUTSIDE RECORDS SUMMARY | 2018-07-21 13:55 | XMS REPORT ---
Author Author Sweta Bravo [facility] eClinicalWorks Address Unknown Phone Unavailable Care Team Providers Care Men'S Designer Name Role Phone Sweta Bravo CP Unavailable [...] MD Mar 20, 2014 RA study - [id number] Gerard Merchant MD Sep 04, 2014 Discuss meds Gerard Merchant MD Aug 29, 2014 f/bhumi Merchant MD October 02, 2014 3m sally Merchant MD Jul 25, 2015 x ray order/mri Gerard Merchant MD May 24, 2015 Unknown Gerard Merchant MD Apr 07, 2014 1133 xeljanz vs angela Merchant MD Apr 25, 2015 3m sally Merchant MD Apr 25, 2015 3m sally Merchant MD January 23, 2015 MRI Gerard Merchant MD February 08, 2015 Problems Problem Type Condition ICD-9 Code Onset Dates Condition Status Assessment Encounter for long-term (current) use of other high-risk medications Z79.899 Active Assessment Neck pain M54.2 Active Problem Encounter for [...] Instructions Start Date End Date Status Dosage Aspirin [facility] [address]-68 81 MG Orally Once a day Active 1 tablet Folic Acid [facility] 27396612032 1 MG Active TAKE 1 TABLET BY MOUTH EVERY DAY Cyclobenzaprine HCl [facility] [address]-02 10 MG Orally BID Jul 25, 2015 Sep 23, 2015 Active 1 tablet Motrin IB [facility] [address]-33 200 MG Orally prn Active 1 tablet MethylPREDNISolone [facility] [address]-80 4 MG Orally Once a day January 21, 2016 Active 1/2 tablet Vitamin D (Ergocalciferol) [facility] [address]-24 13300 UNIT Orally once a week January 21, 2016 Active take one capsule by mouth once a week Protonix [facility] [address]-98 40 MG Orally Once a day Active 1 tablet Methotrexate Unknown 0 2.5mg Orally Once a week January 21, 2016 Active 6 pills Social History Social History Element Qualifiers Date Reported Illicit Drugs . none Jul 25, 2015 Diet: no. Jul 25, 2015 Tobacco Use: . Are you a:: never smoker Jul 25, 2015 Marital Status: . Jul 25, 2015 Caffeine: yes. 1-2 Jul 25, 2015 Exercise: no. Jul 25, 2015 Alcohol: no. 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
--- OUTSIDE RECORDS SUMMARY | 2018-07-21 13:55 | XMS REPORT ---
Author Author Sweta Bravo [facility] eClinicalWorks Address Unknown Phone Unavailable Care Team Providers Care Electronic Funds Transfer Coordinator Name Role Phone Sweta Bravo Unavailable Allergies, [...] MD Mar 20, 2014 RA study - [id number] Gerard Merchant MD Sep 04, 2014 3m sally Merchant MD Apr 23, 2016 Discuss meds Gerard Merchant MD Aug 29, 2014 f/bhumi Merchant MD October 02, 2014 chris Merchant MD Jul 25, 2015 3m sally Merchant MD October 25, 2015 x ray order/jaquan Merchant MD May 24, 2015 Unknown Gerard Merchant MD Apr 07, 2014 1133 xeljanz vs humira Gerard Merchant MD Apr 25, 2015 chris Merchant MD Apr 25, 2015 chris Merchant MD January 23, 2015 JAQUAN Merchant MD February 08, 2015 chris Merchant MD January 23, 2016 Problems Problem Type Condition ICD-9 Code Onset Dates Condition Status Assessment Encounter for long-term (current) use of other high-risk medications Z79.899 Active Assessment Encounter for immunization Z23 Active Problem Encounter for long-term (current) use [...] Date End Date Status Dosage Protonix [facility] [address]-26 40 MG Orally QD Active 1 tablet Motrin IB [facility] [address]-23 200 MG Orally prn Active 1 tablet MethylPREDNISolone [facility] [address]-09 4 MG Orally Once a day Active 1/2 [facility] [address]-77 81 MG Orally QD Active 1 tablet Methotrexate Unknown 0 2.5mg Orally Once a week Active 6 tablets Social History Social History Element Qualifiers Date Reported Illicit Drugs . none Apr 23, 2016 Diet: no. Apr 23, 2016 Tobacco Use: . Are you a:: never smoker Apr 23, 2016 Marital Status: . Apr 23, 2016 Caffeine: yes. 1-2 Apr 23, 2016 Exercise: no. Apr 23, 2016 Alcohol: no. 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 [place](-> OR=60 mL/min/1.73m2) 72 ALKALINE PHOSPHATASE(-33-130 U/L) 41 eGFR (-> OR=60 mL/min/1.73m2) 83 BILIRUBIN, TOTAL(-0.2-1.2 mg/dL) 0.5 BUN/CREATININE RATIO(-6-22 (calc)) NOT APPLICABLE ALBUMIN/GLOBULIN RATIO(-1.0-2.5 (calc)) 1.6 SODIUM(-135-146 mmol/L) 138 GLOBULIN(-1.9-3.7 g/dL (calc)) 2.6 POTASSIUM(-3.5-5.3 mmol/L) 3.9 GLUCOSE(-65-99 mg/dL) 116 CHLORIDE(-98-110 mmol/L) 102 ALBUMIN(-3.6-5.1 g/dL) 4.1 UREA NITROGEN (BUN)(-7-25 mg/dL) 15 PROTEIN, TOTAL(-6.1-8.1 g/dL) 6.7 SED RATE BY MODIFIED WESTERGREN SED RATE BY MODIFIED WESTERGREN(-< OR=30 mm/h) 6 C-REACTIVE PROTEIN C-REACTIVE PROTEIN(-<0.80 mg/dL) 0.19 CBC (INCLUDES DIFF/PLT) MCHC(-32.0-36.0 g/dL) 32.2 MCH(-27.0-33.0 pg) 30.1 PLATELET COUNT(-140-400 Thousand/uL) 242 RDW(-11.0-15.0 %) 16.8 BASOPHILS(- %) 0.3 ABSOLUTE NEUTROPHILS(-8170-2871 cells/uL) 6159 ABSOLUTE LYMPHOCYTES(-850-3900 cells/uL) 1693 MPV(-7.5-11.5 fL) 8.9 ABSOLUTE BASOPHILS(-0-200 cells/uL) 25 HEMATOCRIT(-35.0-45.0 %) 39.9 NEUTROPHILS(- %) 74.2 MCV(-80.0-100.0 fL) 93.5 RED BLOOD CELL COUNT(-3.80-5.10 Million/uL) 4.27 ABSOLUTE MONOCYTES(-200-950 cells/uL) 282 ABSOLUTE EOSINOPHILS(-15-500 cells/uL) 141 HEMOGLOBIN(-11.7-15.5 g/dL) 12.9 EOSINOPHILS(- %) 1.7 WHITE BLOOD CELL COUNT(-3.8-10.8 Thousand/uL) 8.3 LYMPHOCYTES(- %) 20.4 MONOCYTES(- %) 3.4 Immunizations Vaccine Administration Date Flu Vaccine Apr 23, 2016 Summary Purpose eClinicalWorks Submission
--- OUTSIDE RECORDS SUMMARY | 2018-07-21 13:56 | XMS REPORT | Summary of Care ---
Author Author Christelle Jade M.A. Organization Unknown Address [facility] Phone Unavailable Care Team Providers Care Gum Sprayer Name Role Phone ILSE CARLSON Unavailable Unavailable Christelle Jade M.A. Unavailable Unavailable ALANSI N.P., MELISSA Unavailable Unavailable JAVIER HOLMAN [place], AYANNA GONZALEZ Unavailable Unavailable JAVIER Owens, AYANNA Unavailable Unavailable XUAN HOLMAN [place], CECELIA STOLL Unavailable Unavailable Unavailable Unavailable Functional Status Name Dates Details Functional status health issues are not documented Status: Name Dates Details Cognitive status health issues are not documented Status: Problems Name Dates Details Edema (782.3, R60.9) Status: Active Esophageal reflux (530.81, K21.9) Status: Active Psoriatic arthritis (696.0, L40.50) Status: Active Other sinusitis (473.8, J32.9) Status: Active Flu vaccine need (V04.81, Z23) Status: Active Essential (primary) hypertension (401.9, I10) Status: Active Preoperative clearance (V72.84, Z01.818) Status: Active Left ankle pain (719.47, M25.572) Status: Active Tendonitis (726.90, M77.9) Status: Active Medicare annual wellness visit, subsequent (V70.0, Z00.00) Status: Active Rheumatoid arthritis (714.0, M06.9) Status: Active Depression screening negative (V79.0, Z13.31) Status: Active Encounter for mini-mental status examination Status: Active Allergic rhinitis, seasonal (477.9, J30.2) Status: Active Diabetes mellitus (250.00, E11.9) Status: Active Sore throat (462, J02.9) Status: Active Advance directive discussed with patient (V65.49, Z71.89) Status: Active Medications Name Dates Details Aspirin 81 MG TABS TAKE 1 TABLET DAILY. Active Triamterene-HCTZ 37.5-25 MG Oral Tablet TAKE 1 TABLET Daily NEEDS OFFICE VISIT * Quantity: 30 Refills: 0 ALANIS N.P., MELISSA * Start : 20-Mar-2014 Active Methotrexate 2.5 MG Oral Tablet TAKE 1 TABLET THURSDAY MORNING, TAKE 2 TABLETS THURSDAY NIGHT, TAKE 1 TABLET Thu MORNING (10MG WEEKLY) * Refills: 0 Active Protonix 40 MG Oral Tablet Delayed Release 1 po once a day * Refills: 0 * Start : 21-Aug-2015 Active Fosamax 70 MG/75ML SOLN * Refills: 0 Active Levocetirizine Dihydrochloride 5 MG Oral Tablet 1 tab po qd * Quantity: 30 Refills: 2 ZULEYMA P.A., LISE * Start : 01-Jul-2018 Active Allergies and Adverse Reactions Name Dates Details Codeine Derivatives (Allergy) Status: Active Droperidol SOLN (Allergy) Status: Active Percodan TABS (Allergy) Status: Active Past Medical History Name Dates Details History of Abnormal glucose (790.29, R73.09) Status: Resolved History of Abnormal urine finding (791.9, R82.90) Status: Resolved History of acute bronchitis (V12.69, Z87.09) Status: Resolved History of Acute cystitis with hematuria (595.0, N30.01) Status: Resolved History of Acute maxillary sinusitis, recurrence not specified (461.0, J01.00) Status: Resolved History of acute otitis media (V12.49, Z86.69) Status: Resolved History of acute pharyngitis (V12.69, Z87.09) Status: Resolved History of Acute URI (465.9, J06.9) Status: Resolved History of Acute UTI (599.0, N39.0) Status: Resolved History of back pain (V13.59, Z87.39) Status: Resolved History of Bilateral impacted cerumen (380.4, H61.23) Status: Resolved History of Blepharitis, left eye (373.00, H01.006) Status: Resolved History of candidiasis of mouth (V12.09, Z86.19) Status: Resolved History of candidiasis of mouth (V12.09, Z86.19) Status: Resolved History of conjunctivitis (V12.49, Z86.69) Status: Resolved History of contact dermatitis (V13.3, Z87.2) Status: Resolved History of cough Status: Resolved History of Dry cough (786.2, R05) Status: Resolved History of edema (V13.89, Z87.898) Status: Resolved History of edema (V13.89, Z87.898) Status: Resolved History of environmental allergies (V15.09, Z91.09) Status: Resolved History of epistaxis (V12.69, Z87.898) Status: Resolved History of esophageal reflux (V12.79, Z87.19) Status: Resolved History of hiatal hernia (V12.79, Z87.19) Status: Resolved History of Leg wound, right (891.0, S81.801A) Status: Resolved History of low back pain (V13.59, Z87.39) Status: Resolved History of lymphadenopathy (V13.89, Z87.898) Status: Resolved History of Mouth Dryness (Xerostomia) (527.7) Status: Resolved History of neck pain (V13.59, Z87.39) Status: Resolved History of Need for shingles vaccine (V04.89, Z23) Status: Resolved History of Paronychia (681.9) Status: Resolved History of pharyngitis (V12.69, Z87.09) Status: Resolved History of pneumococcal vaccination (V49.89, Z92.29) Status: Resolved History of Pre-op exam (V72.84, Z01.818) Status: Resolved History of Rheumatoid arthritis (714.0, M06.9) Status: Resolved History of Shoulder pain, acute, right (719.41, M25.511) Status: Resolved History of Soft tissue mass (729.90, M79.9) Status: Resolved History of type 2 diabetes mellitus (V12.29, Z86.39) Status: Resolved History of vertigo (V12.49, Z87.898) Status: Resolved History of Viral URI with cough (465.9, J06.9) Status: Resolved History of Yeast vaginitis (112.1, B37.3) Status: Resolved Procedures Procedure Dates Details EKG (In Office) Date: 08-Jun-2018 [[facility]] CMP W/EGFR Date: 08-Jun-2018 [[facility]] PROTHROMBIN W/INR + PARTIAL THROMBOPLASTIN TIMES Date: 08-Jun-2018 History of Cholecystectomy Completed History of Hysterectomy Completed History of Oophorectomy Completed History of Neuroplasty Median Nerve At Carpal Tunnel Completed Immunization Name Dates Details Fluzone INJ Lot #: [id number] on: 20-Apr-2013 Pneumococcal polysaccharide vaccine, 23 valent Lot #: [id number] on: 20-Apr-2013 Fluzone INJ Lot #: [id number] on: 24-Apr-2014 Zostavax 94355 UNT/0.65ML Subcutaneous Solution Reconstituted Lot #: [id number] on: 24-Apr-2014 Fluzone Preservative Free 0.5 ML HENRRY Lot #: [id number] on: 07-May-2015 Fluzone Quadrivalent 0.5 ML Intramuscular Suspension on: 17-Apr-2016 Prevnar 13 Intramuscular Suspension Lot #: [id number] on: 14-Jul-2016 Fluzone High-Dose 0.5 ML Intramuscular Suspension Prefilled Syringe Lot #: [id number] on: 30-Apr-2018 Influenza Comments: Approx [id number] Family History Name Dates Details Family history of Cancer Status: Active Name Dates Details Family history of Cancer Status: Active Social History Name Dates Details - Status: Name Dates Details Never smoker Vital Signs Date Test Result Details [id number] BP Systolic 136 mm[Hg] Status: Comments: Position: Sitting BP Diastolic 76 mm[Hg] Status: Comments: Position: Sitting Heart Rate 75 /min Status: 74-Tax-722689:39 BP Systolic 141 mm[Hg] Status: Comments: Location: LUE; Position: Sitting BP Diastolic 81 mm[Hg] Status: Comments: Location: E; Position: Sitting Heart Rate 75 /min Status: Height 65 in Status: Weight 194.125 lb Status: Body Mass Index Calculated 32.3 kg/m2 Status: Body Surface Area Calculated 1.95 m2 Status: Temperature 97.78 f Status: Comments: Method: Temporal Respiration Rate 16 /min Status: 66-Oeu-683428:37 Physical Findings 0 Status: Comments: Alcohol Screen - How many times in the past yr have you had 5 (for M) or 4 (for F) or 4 (for all > 65yrs) or more drinks in a day? 48-Xck-43093:32 Physical Findings 0 Status: Comments: PHQ-9 Adult Depression Screening 8-Aep-810839:24 BP Systolic 136 mm[Hg] Status: Comments: Location: [facility]; Position: Sitting BP Diastolic 71 mm[Hg] Status: Comments: Location: RUE; Position: Sitting Heart Rate 69 /min Status: :21 BP Systolic 143 mm[Hg] Status: Comments: Location: E; Position: Sitting BP Diastolic 65 mm[Hg] Status: Comments: Location: [facility] [place]; Position: Sitting Heart Rate 72 /min Status: Height 65 in Status: Weight 191 lb Status: Body Mass Index Calculated 31.78 kg/m2 Status: Body Surface Area Calculated 1.94 m2 Status: Temperature 97.9 f Status: Respiration Rate 15 /min Status: Results Date Description Value Details :50 [QL] PROTHROMBIN W/INR + PARTIAL THROMBOPLASTIN TIMES Comments: Reference Range 0.9-1.1Moderate-intensity Warfarin Therapy 2.0-3.0Higher-intensity Warfarin Therapy 3.0-4.0 PARTIAL THROMBOPLASTIN TIME, ACTIVATED 24 {sec} (Normal) Range: 22-34 Comments: This test has not been validated for monitoringunfractionated heparin therapy. For testing thatis validated for this type of therapy, please referto the Heparin Anti-Xa assay (test code 32757). For additional information, please refer tohttp://[email or web address].WHObyYOU/faq/IKC901(This link is being provided for informational/educational purposes only.) INR 1.1 (Normal) Comments: Reference Range 0.9-1.1Moderate-intensity Warfarin Therapy 2.0-3.0Higher-intensity Warfarin Therapy 3.0-4.0 PT 11.3 {sec} (Normal) Range: 9.0-11.5 :50 [QLH] CMP W/EGFR GLUCOSE 86 mg/dl (Normal) Range: 65-99 Comments: Fasting reference interval UREA NITROGEN (BUN) 14 mg/dl (Normal) Range: 7-25 CREATININE 0.78 mg/dl (Normal) Range: 0.60-0.93 Comments: For patients >49 years of age, the reference limitfor Creatinine is approximately 13% higher for peopleidentified as -[place]. eGFR NON- 75 {ML/MIN/1.7} (Normal) Range: > OR=60 eGFR 87 {ML/MIN/1.7} (Normal) Range: > OR=60 BUN/CREATININE RATIO NOT APPLICABLE {CALC} Range: 6-22 SODIUM 143 mmol/L (Normal) Range: 135-146 POTASSIUM 4.2 mmol/L (Normal) Range: 3.5-5.3 CHLORIDE 102 mmol/L (Normal) Range: 98-110 CARBON DIOXIDE 29 mmol/L (Normal) Range: 20-32 CALCIUM 9.6 mg/dl (Normal) Range: 8.6-10.4 PROTEIN, TOTAL 6.6 g/dl (Normal) Range: 6.1-8.1 ALBUMIN 4.0 g/dl (Normal) Range: 3.6-5.1 GLOBULIN 2.6 {G/DL__CALC} (Normal) Range: 1.9-3.7 ALBUMIN/GLOBULIN RATIO 1.5 {CALC} (Normal) Range: 1.0-2.5 BILIRUBIN, TOTAL 0.6 mg/dl (Normal) Range: 0.2-1.2 ALKALINE PHSPHATASE 54 u/l (Normal) Range: 33-130 AST 14 u/l (Normal) Range: 10-35 ALT 13 u/l (Normal) Range: 6-29 65-Umi-48582:50 [[facility]] CBC (INCLUDES DIFF/PLT) Comments: REPORT COMMENT:FASTING:YES WHITE BLOOD CELL COUNT 8.6 {Thousand/u} (Normal) Range: 3.8-10.8 RED BLOOD CELL COUNT 5.12 {Million/uL} (Above high threshold) Range: 3.80-5.10 HEMAGLOBIN 14.1 g/dl (Normal) Range: 11.7-15.5 HEMATOCRIT 43.2 % (Normal) Range: 35.0-45.0 MCV 84.4 fL (Normal) Range: 80.0-100.0 MCH 27.5 pg (Normal) Range: 27.0-33.0 MCHC 32.6 g/dl (Normal) Range: 32.0-36.0 RDW 15.4 % (Above high threshold) Range: 11.0-15.0 PLATELET COUNT 190 {Thousand/u} (Normal) Range: 140-400 MPV 11.2 fL (Normal) Range: 7.5-12.5 ABSOLUTE NEUTROPHILS 5547 {cells/uL} (Normal) Range: 9900-8458 ABSOLUTE LYMPHOCYTES 2167 {cells/uL} (Normal) Range: 850-3900 ABSOLUTE MONOCYTES 662 {cells/uL} (Normal) Range: 200-950 ABSOLUTE EOSINOPHILS 163 {cells/uL} (Normal) Range: 15-500 ABSOLUTE BASOPHILS 60 {cells/uL} (Normal) Range: 0-200 NEUTROPHILS 64.5 % (Normal) LYMPHOCYTES 25.2 % (Normal) MONOCYTES 7.7 % (Normal) EOSINOPHILS 1.9 % (Normal) BASOPHILS 0.7 % (Normal) 35-Axc-012806:06 [O] Streptococcus Test Rapid (In Office) Group A Strep Screen negative (Normal) 81-Mxz-899113:30 [O] Streptococcus Test Rapid (In Office) Group A Strep Screen neg (Normal) Plan of Care Name Dates Details Planned Observations Planned Goals not documented Instructions Name Dates Details Instructions not documented Encounters Appointment; LISE AMOR PSawyer Encounter Diagnosis: Problem not documented On: 14-Jul-2016 14:30 Appointment; CYDNEY DONAHUE NP Encounter Diagnosis: Problem not documented On: 09-Sep-2016 8:00 Appointment; LISE AMOR PSawyer Encounter Diagnosis: Problem not documented On: 17-Sep-2016 11:00 Appointment; WARREN IBARRA M.D. Encounter Diagnosis: Problem not documented On: 17-Oct-2016 8:30 Appointment; JOHN CHACON P.A. Encounter Diagnosis: Problem not documented On: 20-Jan-2017 11:15 Appointment; ANGELINE ELIZABETH M.D. Encounter Diagnosis: Problem not documented On: 23-Jan-2017 10:00 Appointment; ANGELINE ELIZABETH M.D. Encounter Diagnosis: Problem not documented On: 06-Feb-2017 11:45 Appointment; ANGELINE ELIZABETH M.D. Encounter Diagnosis: Problem not documented On: 18-Feb-2017 10:45 Appointment; ALLISON BARROW NP Encounter Diagnosis: Problem not documented On: 29-Apr-2017 16:00 Appointment; JOHN CHACON P.A. Encounter Diagnosis: Problem not documented On: 08-Sep-2017 14:15 Appointment; JOHN CHACON PVijayAVijay Encounter Diagnosis: Problem not documented On: 14-Sep-2017 13:45 Appointment; LUZ MARIA HAWLEY M.D. Encounter Diagnosis: Problem not documented On: 12-Oct-2017 8:00 Appointment; MELISSA ALANIS NP Encounter Diagnosis: Problem not documented On: 12-Oct-2017 11:45 Appointment; LUZ MARIA HAWLEY M.D. Encounter Diagnosis: Problem not documented On: 28-Oct-2017 13:15 Appointment; JOHN CHACON P.A. Encounter Diagnosis: Problem not documented On: 16-Dec-2017 10:15 Appointment; JOHN CHACON PSawyer Encounter Diagnosis: Problem not documented On: 30-Apr-2018 15:00 Appointment; JOHN CHACON PSawyer Encounter Diagnosis: Problem not documented On: 08-Jun-2018 14:15 Appointment; LISE AMOR P.A. Encounter Diagnosis: Problem not documented On: 01-Jul-2018 13:45
--- NOTE | 2018-07-21 15:27 | Diagnostic Imaging Report ---
Exam: Left foot 3 views and ankle 3 views History: Pain and swelling Comparison: None. Findings: No acute fracture. Prior subtalar fusion with screw extending across the posterior facet. No hardware loosening. Soft tissue swelling of the ankle. Impression: No acute osseous abnormality Signed by: Dr. Rivera Myers M.D. on 07/21/2018 3:24 PM
[2018-07-21 18:01] VITALS: BP 149/87
== END 2018-07-21 18:11 | disposition home or self-care (01) ==
LOC: ER 13:49
DX: M25.572 Pain in left ankle and joints of left foot (principal); M25.472 Effusion, left ankle; K21.9 Gastro-esophageal reflux disease without esophagitis
CPT/HCPCS: 93971; 99283